=== PATIENT | female | born 1975 | race Caucasian/White ===

== ENCOUNTER 2020-05-30 14:28 | Emergency (ER) | payer SELFPAY ==
--- NOTE | 2020-05-30 15:34 | RAD REPORT ---
EXAM DESCRIPTION: RAD - Ribs Left - 05/30/2020 3:22 pm CLINICAL HISTORY: Left-sided rib pain following trauma COMPARISON: None. FINDINGS: No displaced rib fractures are present. Nondisplaced rib fracture is suspected at the ante rior tip left eleventh rib and possibly the anterior tip of the left tenth rib. No aggressive rib les ion. No underlying pneumothorax, effusion, infiltrate or pulmonary contusion. IMPRESSION: Questionable nondisplaced rib fractures anterior margin of the left tenth and eleventh r ibs.
--- NOTE | 2020-05-30 15:54 | ER ---
Nurse's Notes [facility] Name: Kortney Hernandez Age: 44 yrs Sex: Female : 1975 Arrival Date: 05/30/2020 Time: 14:30 Bed 13 Private MD: Diagnosis: Multiple fractures of ribs, left side-tenth and eleventh ribs Presentation: 05/30 14:34 Chief complaint: Patient states: Left mid rib cage pain for 1 day. Leaned over and felt ll1 a pain. + swelling to this area. Happens periodically throughout the last 6 years. Coronavirus screen: Client denies travel out of the [place] in the last 14 days. At this time, the client does not indicate any symptoms associated with coronavirus-19. Ebola Screen: Patient denies travel to an Ebola-affected area in the 21 days before illness onset. Initial Sepsis Screen: Does the patient meet any 2 criteria? No. Patient's initial sepsis screen is negative. Risk Assessment: Do you want to hurt yourself or someone else? Patient reports no desire to harm self or others. Onset of symptoms was May 30, 2020. 14:34 Method Of Arrival: Ambulatory 1 14:34 Acuity: [place] 4 ll1 Triage Assessment: 16:01 General: Appears in no apparent distress. comfortable, Behavior is calm, cooperative. ls4 Pain: Complains of pain in anterior aspect of left lateral abdomen Pain currently is 5 out of 10 on a pain scale. Quality of pain is described as aching. Neuro: No deficits noted. Cardiovascular: No deficits noted. Respiratory: Airway is patent Respiratory effort is even, unlabored, Respiratory pattern is regular. Derm: No deficits noted. No signs and/or symptoms reported regarding the dermatologic system. no wounds, bruising, swelling. Pt moves without grimace or guarding. Musculoskeletal: Circulation, motion, and sensation intact. Capillary refill < 3 seconds, Range of motion: intact in all extremities, Swelling absent. Historical: - Allergies: 14:36 No Known Allergies; ll1 - PSHx: 14:36 None; ll1 - Immunization history:: Flu vaccine is up to date. - Social history:: Smoking status: Patient denies any tobacco usage or history of. Patient/guardian denies using alcohol, street drugs. Screenin:37 Abuse screen: Denies threats or abuse. Denies injuries from another. Nutritional ls4 screening: No deficits noted. Tuberculosis screening: No symptoms or risk factors identified. Fall Risk None identified. Assessment: 14:37 General: Appears in no apparent distress. comfortable. ls4 14:37 Neuro: No deficits noted. Cardiovascular: No deficits noted. Respiratory: No deficits ls4 noted. 15:30 Reassessment: Patient appears in no apparent distress at this time. Patient and/or ls4 family updated on plan of care and expected duration. Pain level reassessed. Patient is alert, oriented x 3, equal unlabored respirations, skin warm/dry/pink. Vital Signs: 14:34 BP 162 / 75; Pulse 93; Resp 17; Temp 99.3; Pulse Ox 100% ; Pain 5/10; ll1 ED Course: 14:30 Patient arrived in ED. as 14:36 Triage completed. ll1 14:36 Arm band placed on Patient placed in an exam room, on a stretcher. ll1 14:38 Yuniel Melendez PA is PHCP. cp 14:38 [place] Roe MD is Attending Physician. cp 15:14 Kristel Wynn, RN is Primary Nurse. ls4 15:22 XRAY Ribs LEFT In Process Unspecified. EDMS 16:11 No provider procedures requiring assistance completed. Patient did not have IV access ls4 during this emergency room visit. Administered Medications: 15:52 Not Given (Patient Refused): Ibuprofen 800 mg PO once ls4 15:52 Not Given (Patient Refused): Tylenol 650 mg PO once ls4 Outcome: 15:53 Discharge ordered by MD. cp 16:11 Discharged to home ambulatory. ls4 16:11 Condition: good 16:11 Discharge instructions given to patient, Instructed on discharge instructions, follow up and referral plans. medication usage, safety practices, Demonstrated understanding of instructions, follow-up care, medications. 16:16 Patient left the ED. ls4 Signatures: Dispatcher [employer] EDMS Lisa Morrow as Yuniel Melendez PA PA cp Stewart, Lisa, RN RN ls4 Giovanny Faust RN RN ll1
--- NOTE | 2020-05-30 15:54 | EDPHYS ---
Physician Documentation [facility] Name: Kortney Hernandez Age: 44 yrs Sex: Female : 1975 Arrival Date: 05/30/2020 Time: 14:30 Bed 13 Private MD: ED Physician Ch[place] Roe HPI: 05/30 15:00 This 44 yrs old Female presents to ER via Ambulatory with complaints of Rib cp Pain. 15:00 The patient or guardian reports chest pain that is located primarily in the left cp lateral chest area. Onset: 1 month(s) ago. 15:00 The pain does not radiate. Associated signs and symptoms: Pertinent negatives: cp abdominal pain, cough, diaphoresis, lower extremity pain, lower extremity swelling, shortness of breath. Modifying factors: the symptoms are aggravated by twisting torso, heavy lifting. 15:00 Patient denies trauma to area. cp Historical: - Allergies: 14:36 No Known Allergies; ll1 - PSHx: 14:36 None; ll1 - Immunization history:: Flu vaccine is up to date. - Social history:: Smoking status: Patient denies any tobacco usage or history of. Patient/guardian denies using alcohol, street drugs. ROS: 15:10 Cardiovascular: Positive for chest pain, of the left lower lateral rib area, Negative cp for edema, palpitations. 15:10 Respiratory: Negative for cough, shortness of breath, wheezing. cp 15:10 Abdomen/GI: Negative for abdominal pain, nausea, vomiting, and diarrhea. Exam: 15:15 Constitutional: The patient appears in no acute distress, alert, awake, cp non-diaphoretic, well developed, well nourished. 15:15 Head/Face: Normocephalic, atraumatic. cp 15:15 Chest/axilla: Inspection: normal, Palpation: crepitus, is not appreciated, tenderness, that is mild, of the left lower lateral rib area below breast. 15:15 Cardiovascular: Rate: normal, Rhythm: regular, Edema: is not appreciated, JVD: is not appreciated. 15:15 Respiratory: the patient does not display signs of respiratory distress, Respirations: normal, no use of accessory muscles, no retractions, labored breathing, is not present, Breath sounds: are clear throughout, no decreased breath sounds, no stridor, no wheezing. 15:15 Abdomen/GI: Exam negative for discomfort, distension, guarding, Inspection: abdomen appears normal. 15:15 Back: pain, is absent, ROM is normal. 15:15 Skin: no rash present. 15:15 Neuro: Orientation: to person, place \T\ time. Mentation: is normal, Motor: moves all fours, strength is normal. Vital Signs: 14:34 BP 162 / 75; Pulse 93; Resp 17; Temp 99.3; Pulse Ox 100% ; Pain 5/10; ll1 MDM: 14:47 Patient medically screened. cp 15:52 Data reviewed: vital signs, nurses notes, radiologic studies, plain films, and as a cp result, I will discharge patient. 05/30 16:00 Order name: Urine Dipstick--Ancillary (enter results) em 05/30 16:00 Order name: Urine --Ancillary (enter results) [facility] 05/30 14:57 Order name: XRAY Ribs LEFT; Complete Time: 15:42 cp 05/30 14:58 Order name: Urine Dipstick-Ancillary (obtain specimen); Complete Time: 15:59 cp 05/30 14:58 Order name: Urine Test (obtain specimen); Complete Time: 15:59 cp Administered Medications: 15:52 Not Given (Patient Refused): Ibuprofen 800 mg PO once ls4 15:52 Not Given (Patient Refused): Tylenol 650 mg PO once ls4 Disposition: 16:00 Chart complete. cp 16:23 Co-signature as Attending Physician, [place] Roe MD. rn Disposition: 05/30/20 15:53 Discharged to Home. Impression: Multiple fractures of ribs, left side - tenth and eleventh ribs. - Condition is Stable. - Discharge Instructions: Rib Fracture, Form - Excuse from Work, School, or Physical Activity. - Prescriptions for Tramadol 50 mg Oral Tablet - take 1 tablet by ORAL route every 8 hours As needed as needed; 20 tablet. Ibuprofen 800 mg Oral Tablet - take 1 tablet by ORAL route every 8 hours As needed take with food; 30 tablet. - Medication Reconciliation Form, Thank You Letter, Antibiotic Education, Prescription Opioid Use form. - Follow up: Private Physician; When: 2 - 3 days; Reason: Recheck today's complaints. - Problem is an ongoing problem. - Symptoms have improved. Signatures: Dispatcher [employer] Chico Linares MD MD rn Yuniel Melendez PA PA cp Stewart, Lisa RN RN ls4 Giovanny Faust RN RN ll1 Corrections: (The following items were deleted from the chart) 16:16 15:53 05/30/2020 15:53 Discharged to Home. Impression: Multiple fractures of ribs, left ls4 side - tenth and eleventh ribs. Condition is Stable. Forms are Medication Reconciliation Form, Thank You Letter, Antibiotic Education, Prescription Opioid Use. Follow up: Private Physician; When: 2 - 3 days; Reason: Recheck today's complaints. Problem is an ongoing problem. Symptoms have improved. cp
[2020-05-30] MEDS ORDERED: IBUPROFEN 200 MG TAB PO ONE (15:56)
[2020-05-30] MEDS ORDERED: ACETAMINOPHEN 325 MG TABLET ONE (15:56)
[2020-05-30 16:05] LABS: Urine Blood TRACE (NEG); Urine Glucose NEGATIVE (NEG); Urine Protein NEGATIVE (NEG); Urine pH 5.5 (5.0-7.0)
[2020-05-30 19:31] VITALS: BP 162/75; TEMP 99.3; O2SAT 100
== END 2020-05-30 16:16 | disposition home or self-care (01) ==
LOC: ER 14:28
DX: S22.42XA Multiple fractures of ribs, left side, initial encounter for closed fracture (principal)
CPT/HCPCS: 81003; 81025; 99283